=== PATIENT | female | born 1940 | race Caucasian/White ===

== ENCOUNTER 2021-01-30 11:13 | Inpatient (IN) ==
[~2021-01-30 11:13] MED LIST: Acetaminophen IV 1,000 MG/100 ML BAG IVPB ONE; Famotidine 20 MG/2 ML VIAL IVP ONE; Ringers Solution, Lactated 1,000 ML IVC ONE
[2021-01-30] MEDS ORDERED: Clindamycin 900 MG/50 ML 900 MG/50 ML IV.SOLN IVPB ONE (11:55)
[2021-01-30] MEDS ORDERED: Albuterol 2.5 MG/3 ML NEBULIZER IH PRN (12:24)
[2021-01-30] MEDS ORDERED: *HR* FentaNYL (PF) 100 MCG/2 ML VIAL IVP PRN ×2 (12:24→22:33)
[2021-01-30] MEDS ORDERED: Naloxone 0.4 MG/ML INJ IVP PRN ×2 (12:24→22:33)
[2021-01-30] MEDS ORDERED: Nitroglycerin 0.4 MG TAB.SUBL SL PRN (12:24)
[2021-01-30] MEDS ORDERED: Lidocaine -MPF 2% 2 ML VIAL ONE (13:26)
[2021-01-30] MEDS ORDERED: *HR* Succinylcholine 200 MG/10 ML VIAL IVP ONE (13:26)
[2021-01-30] MEDS ORDERED: Ondansetron 4 MG/2 ML VIAL ONE (13:26)
[2021-01-30] MEDS ORDERED: *HR* FentaNYL (PF) 100 MCG/2 ML VIAL ONE (13:26)
[2021-01-30] MEDS ORDERED: Sugammadex Sodium 200 MG/2 ML VIAL IV ONE (13:26)
[2021-01-30] MEDS ORDERED: *HR* Rocuronium Bromide 50 MG/5 ML VIAL ONE (13:26)
[2021-01-30] MEDS ORDERED: *HR* Midazolam HCl 2 MG/2 ML VIAL ONE (13:27)
[2021-01-30] MEDS ORDERED: *HR* Propofol 200 MG/20 ML VIAL IVP ONE (13:27)
[2021-01-30] MEDS ORDERED: Albumin Human 5% 0 GM/0 ML IV.SOLN ONE (14:56)
[2021-01-30] MEDS: *HR* HYDROmorphone PF 0.5 MG/0.5 ML SYRINGE IVP PRN ×3 (17:58→18:18)
[2021-01-30] MEDS ORDERED: Ondansetron 4 MG/2 ML VIAL IVP PRN (22:33)
[2021-01-30] MEDS: *HR* HYDROcodone/Acet 5/325 mg TABLET PO PRN (22:54)
[2021-01-30] MEDS: Famotidine 20 MG/2 ML VIAL IVP SCH (23:24)
[2021-01-30] MEDS: Ringers Solution, Lactated 1,000 ML IVC SCH (23:24)
[2021-01-30] MEDS: Clindamycin 900 MG/50 ML 900 MG/50 ML IV.SOLN IVPB SCH (23:25)
[2021-01-31 01:56] LABS: Basophils % 0.2 %; Hematocrit 36.9 % (35.3-44.9); Hemoglobin 11.2 g/dL (11.5-15.4); Immature Granulocytes % 0.3 % (0-4); Lymphocytes # 0.4 K/mcL (0.6-4.6); Mean Corpuscular HGB Conc 30.4 g/dL (31.6-35.5); Mean Corpuscular Hemoglobin 26.2 pg (28.0-33.3); Mean Corpuscular Volume 86.2 fL (83.0-100.0); Mean Platelet Volume 9.1 fL (9.4-12.4); Monocytes # 0.1 K/mcL (0.0-1.3); Monocytes % 0.9 %; Neutrophils # 9.1 K/mcL (1.6-8.9); Platelet Count 284 K/mcL (140-400); Red Blood Count 4.28 M/mcL (3.82-4.97); Segmented Neutrophils % 94.6 %; White Blood Count 9.6 K/mcL (4.3-11.1)
[2021-01-31 02:12] LABS: BUN/Creatinine Ratio 22 (6-26); Blood Urea Nitrogen 12 mg/dL (8-23); Calcium 8.9 mg/dL (8.6-10.3); Carbon Dioxide 20 mEq/L (23-29); Chloride 107 mEq/L (98-107); Glucose 152 mg/dL (70-105); Osmolality,Calculated 287 (280-300); Phosphorous 4.2 mg/dL (2.7-4.5); Potassium 3.8 mEq/L (3.5-5.1); Sodium 137 mEq/L (136-145); eGFR For African Americans > 60 (> 60); eGFR For Non-African Americans > 60 (> 60)
[2021-01-31] MEDS: Acetaminophen 325 MG TABLET PO PRN (03:38)
[2021-01-31] MEDS: *HR* HYDROcodone/Acet 5/325 mg TABLET PO PRN ×3 (06:06→18:01)
[2021-01-31] MEDS: Levothyroxine 25 MCG TABLET PO SCH (06:07)
[2021-01-31] MEDS: Famotidine 20 MG/2 ML VIAL IVP SCH ×2 (06:07→18:02)
[2021-01-31] MEDS: Clindamycin 900 MG/50 ML 900 MG/50 ML IV.SOLN IVPB SCH ×2 (07:58→15:33)
[2021-01-31] MEDS: *HR* LORazepam 0.5 MG TABLET PO PRN ×2 (12:01→18:03)
[2021-01-31] MEDS: Ringers Solution, Lactated 1,000 ML IVC SCH (15:32)
[2021-01-31] MEDS: *HR* Heparin 5,000 UNIT/ML VIAL SQ SCH (18:02)
[2021-02-01] MEDS: *HR* HYDROcodone/Acet 5/325 mg TABLET PO PRN ×2 (00:12→18:06)
[2021-02-01] MEDS: Levothyroxine 25 MCG TABLET PO SCH (06:04)
[2021-02-01] MEDS: *HR* Heparin 5,000 UNIT/ML VIAL SQ SCH ×2 (06:04→18:06)
[2021-02-01] MEDS: Famotidine 20 MG/2 ML VIAL IVP SCH ×2 (06:04→18:07)
[2021-02-01] MEDS: *HR* LORazepam 0.5 MG TABLET PO PRN ×2 (06:09→18:06)
[2021-02-01] MEDS: Acetaminophen 325 MG TABLET PO PRN ×2 (06:25→12:15)
[2021-02-01] MEDS: Ringers Solution, Lactated 1,000 ML IVC SCH (07:52)
[2021-02-01 10:07] LABS: BUN/Creatinine Ratio 21 (6-26); Blood Urea Nitrogen 11 mg/dL (8-23); Calcium 8.5 mg/dL (8.6-10.3); Carbon Dioxide 27 mEq/L (23-29); Chloride 105 mEq/L (98-107); Glucose 98 mg/dL (70-105); Osmolality,Calculated 283 (280-300); Potassium 3.5 mEq/L (3.5-5.1); Sodium 137 mEq/L (136-145); eGFR For African Americans > 60 (> 60); eGFR For Non-African Americans > 60 (> 60)
[2021-02-02] MEDS: Acetaminophen 325 MG TABLET PO PRN ×3 (00:23→22:03)
[2021-02-02] MEDS: *HR* Heparin 5,000 UNIT/ML VIAL SQ SCH ×2 (05:05→18:00)
[2021-02-02] MEDS: Levothyroxine 25 MCG TABLET PO SCH (05:05)
[2021-02-02] MEDS: Famotidine 20 MG/2 ML VIAL IVP SCH (05:05)
[2021-02-02] MEDS: *HR* HYDROcodone/Acet 5/325 mg TABLET PO PRN (07:01)
[2021-02-02] MEDS: *HR* LORazepam 0.5 MG TABLET PO PRN ×2 (07:02→16:43)
[2021-02-02 08:11] LABS: Basophils % 0.2 %; Eosinophils # 0.1 K/mcL (0.0-0.6); Eosinophils % 0.7 %; Hematocrit 40.5 % (35.3-44.9); Hemoglobin 12.6 g/dL (11.5-15.4); Immature Granulocytes % 0.4 % (0-4); Lymphocytes # 1.1 K/mcL (0.6-4.6); Lymphocytes % 12.2 %; Mean Corpuscular HGB Conc 31.1 g/dL (31.6-35.5); Mean Corpuscular Hemoglobin 25.9 pg (28.0-33.3); Mean Corpuscular Volume 83.3 fL (83.0-100.0); Mean Platelet Volume 9.4 fL (9.4-12.4); Monocytes # 0.7 K/mcL (0.0-1.3); Monocytes % 7.6 %; Platelet Count 298 K/mcL (140-400); Red Blood Count 4.86 M/mcL (3.82-4.97); Segmented Neutrophils % 78.9 %; White Blood Count 9.3 K/mcL (4.3-11.1)
[2021-02-02 08:24] LABS: Neutrophils # 7.3 K/mcL (1.6-8.9)
[2021-02-02 09:16] LABS: Anisocytosis 2+ (Not Present); Poikilocytosis 1+ (Not Present); Target Cells 1+ (Not Present)
[2021-02-02 09:19] LABS: Dohle Bodies Present (Not Present); Toxic Granulation Present (Not Present)
[2021-02-03] MEDS: Levothyroxine 25 MCG TABLET PO SCH (05:32)
[2021-02-03] MEDS: *HR* Heparin 5,000 UNIT/ML VIAL SQ SCH (05:32)
[2021-02-03 07:19] VITALS: BP 167/72
[2021-02-03] MEDS: Acetaminophen 325 MG TABLET PO PRN (07:43)
[2021-02-03] MEDS ORDERED: Famotidine 20 MG TABLET PO SCH (09:00)
== END 2021-02-03 12:35 | disposition home or self-care (01) | DRG 331 ==
LOC: SAMDAY 11:13 → 3ANU 18:37
PROVIDERS: ADMIT Surgery; ATTEND Surgery